=== PATIENT | female | born 1990 | race Caucasian/White ===

== ENCOUNTER 2019-05-15 06:57 | Emergency (ER) | payer MEDICAID ==
[~2019-05-15] VITALS: Ht 147.3 cm; Wt 72.7 kg
[2019-05-15 08:51] VITALS: BP 116/64
== END 2019-05-15 09:22 | disposition home or self-care (01) ==
LOC: EMS 06:57
DX: R05 Cough (principal); F17.210 Nicotine dependence, cigarettes, uncomplicated; Z20.828 Contact with and (suspected) exposure to other viral communicable diseases
CPT/HCPCS: 87635